=== PATIENT | female | born 1985 | race Caucasian/White ===

== ENCOUNTER 2018-06-25 09:54 | Emergency (ER) | payer SELFPAY ==
[2018-06-25 10:04] VITALS: BP 117/81; PULSE 84; RESP 16; TEMP 97.8
--- NOTE | 2018-06-25 10:27 | ED ---
General Adult HPI - General Chief complaint: Extremity Injury, Lower Stated complaint: pain behind rt knee Time Seen by Provider: 06/25/18 10:07 Source: patient, RN notes reviewed Mode of arrival: wheelchair Limitations: no limitations - History of Present Illness Initial comments: Patient 32-year-old female presented to the emergency room today with a chief complaint of injury to the right knee occurred last night. She states she went to squat down to get something out of a cabinet and she felt a pop behind the right knee. Patient states that she's had some increased tenderness with both flexion and extension. She states that the knee feels unstable to her like it' s going to give out. Patient denies any other complaints or symptoms. Patient denies any recent fever, chills, shortness of breath, chest pain, back pain, abdominal pain, headaches or visual changes, or any other complaints. - Related Data Home Medications Medication Instructions Recorded Confirmed Ibuprofen [Motrin Ib] 800 mg PO BID PRN 06/25/18 06/25/18 buPROPion HCL [Wellbutrin SR] 150 mg PO BID 06/25/18 06/25/18 Allergies Allergy/AdvReac Type Severity Reaction Status Date / Time sulfamethoxazole AdvReac Nausea & Verified 06/25/18 10:29 [From Bactrim] Vomiting trimethoprim [From Bactrim] AdvReac Nausea & Verified 06/25/18 10:29 Vomiting Review of Systems ROS Statement: Those systems with pertinent positive or pertinent negative responses have been documented in the HPI. ROS Other: All systems not noted in ROS Statement are negative. Past Medical History Past Medical History: No Reported History History of Any Multi-Drug Resistant Organisms: None Reported Past Surgical History: Cholecystectomy Past Psychological History: Depression Smoking Status: Current every day smoker Past Alcohol Use History: Rare Past Drug Use History: None Reported General Exam - General Exam Comments Initial Comments: General: The patient is awake and alert, in no distress, and does not appear acutely ill. Neck: The neck is supple, there is no tenderness or JVD. Musculoskeletal: Patient has normal appearance of her knee no obvious deformity. Shows limited range of motion both flexion and extension -10-15. Sensations intact. Pedal pulses plus. Strength 4/5 due to pain. Patient does have tenderness with valgus stress maneuvers. Neurological: A&O x 3. CN II-XII intact, There are no obvious motor or sensory deficits. Coordination appears grossly intact. Speech is normal. Skin: Skin is warm and dry and no rashes or lesions are noted. Psychiatric: Normal mood and affect. Limitations: no limitations Course Vital Signs 06/25/18 10:01 Temperature 97.8 F Pulse Rate 84 Respiratory 16 Rate Blood Pressure 117/81 O2 Sat by Pulse 100 Oximetry Medical Decision Making - Medical Decision Making Patient reviewed negative for any acute abnormalities. Results were discussed with the patient. Patient doing immobilizer in emergency room. Will be given a prescription for crutches and advised to use weightbearing as tolerated. Advised follow-up with orthopedics over the next 2 days. Advised to ice elevate the affected area and continue with ibuprofen for pain. Disposition Clinical Impression: Knee pain Disposition: HOME SELF-CARE Condition: Good Instructions: Knee Pain (ED) Additional Instructions: Please use medication as discussed. Please use knee brace when up and moving around with crutches with weightbearing as tolerated. Please follow-up orthopedics over the next 2-5 days. Please return to emergency room if the symptoms increase or worsen or for any other concerns. Is patient prescribed a controlled substance at d/c from ED?: No Referrals: Nonstaff,Physician [REFERRING] - 1-2 days Benedict Del Cid MD [STAFF PHYSICIAN] - 1-2 days Time of Disposition: 10:50
--- NOTE | 2018-06-25 10:29 | XR ---
EXAMINATION TYPE: XR knee complete RT DATE OF EXAM: 06/25/2018 CLINICAL HISTORY: pain TECHNIQUE: Three views of the right knee are obtained. COMPARISON: None. FINDINGS: There is no acute fracture/dislocation. The tri-compartment joint spaces appear within no rmal limits. The overlying soft tissue appears unremarkable. IMPRESSION: There is no acute fracture or dislocation.ICD 10 NO FRACTURE, INITIAL EVALUATION
== END 2018-06-25 11:24 | disposition home or self-care (01) ==
LOC: EC 09:54
DX: M25.561 Pain in right knee (principal); F32.9 Major depressive disorder, single episode, unspecified; F17.200 Nicotine dependence, unspecified, uncomplicated; Z88.2 Allergy status to sulfonamides; Z79.899 Other long term (current) drug therapy; X50.9XXA Other and unspecified overexertion or strenuous movements or postures, initial encounter; Y93.89 Activity, other specified
CPT/HCPCS: 73562; 99283; L1830 ×2